=== PATIENT | female | born 1990 | race African-American/Black ===

== ENCOUNTER 2018-01-12 07:36 | Inpatient (IN) | payer SELFPAY ==
[~2018-01-12] VITALS: Ht 170.2 cm; Wt 108.9 kg
[2018-01-12] MEDS ORDERED: NALOXONE HCL 0.4 MG/ML 1ML VIAL IM PRN (08:30)
[2018-01-12] MEDS ORDERED: CARBOPROST TROMETHAMINE 250 MCG/ML AMPUL IM PRN (08:30)
[2018-01-12] MEDS ORDERED: BUTORPHANOL TARTRATE 2 MG/ML VIAL IV PRN (08:30)
[2018-01-12] MEDS ORDERED: LIDOCAINE HCL/PF 1% 10 MG/ML 5ML VIAL IJ SCH (08:30)
[2018-01-12] MEDS ORDERED: METHYLERGONOVINE MALEATE 0.2 MG/ML IM PRN (08:30)
[2018-01-12] MEDS: LACTATED RINGERS 1,000 ML IV SCH ×3 (09:33→23:41)
[2018-01-12 10:55] LABS: BASOPHILS % 0.2 % (0.0-2.0); EOSINOPHILS % 0.6 % (0.0-5.0); HEMATOCRIT. 37.7 % (36.0-48.0); LYMPHOCYTES % 21.3 % (20.0-50.0); MEAN CORPUSCULAR HEMOGLOBIN 31.4 pg (28.0-32.0); MEAN PLATELET VOLUME 9.8 fl (7.4-10.4); MONOCYTES % 5.3 % (2.0-8.0); NEUTROPHILS % 72.6 % (40.0-76.0); PLATELET 136 x1000/uL (130-400); RED BLOOD CELL COUNT 4.14 mill/uL (4.2-5.4); RED CELL DISTRIBUTION WIDTH 13.7 % (11.6-14.6)
[2018-01-12 11:00] LABS: PARTIAL THROMBOPLASTIN TIME 25.5 sec (23.4-31.0)
[2018-01-12 11:11] LABS: CLARITY URINE CLEAR (CLEAR); COLOR URINE YELLOW (YELLOW); KETONES URINE NEGATIVE (NEGATIVE); LEUKOCYTE ESTERASE URINE TRACE (NEGATIVE); NITRITE URINE NEGATIVE (NEGATIVE); OCCULT BLOOD URINE TRACE (NEGATIVE); PH URINE 6.5 (4.5-8.0); PROTEIN URINE NEGATIVE (NEGATIVE); SPECIFIC GRAVITY URINE 1.021 (1.005-1.030); UROBILINOGEN URINE 0.2 E.U./dL (0.2-1.0)
[2018-01-12 13:06] LABS: HEPATITIS B SURFACE ANTIGEN NEGATIVE; RUBELLA IGG 233.6 IU/mL (4.99-10)
[2018-01-12 14:29] LABS: *AMPHETAMINES SCREEN URINE NEGATIVE (NEGATIVE); *BARBITURATES SCREEN URINE NEGATIVE (NEGATIVE); *BENZODIAZEPINES SCREEN URINE NEGATIVE (NEGATIVE); *COCAINE SCREEN URINE NEGATIVE (NEGATIVE); METHADONE URINE SCREEN NEGATIVE (NEGATIVE); OPIATES URINE SCREEN NEGATIVE (NEGATIVE)
[2018-01-12 14:30] LABS: CANNABINOID URINE SCREEN NEGATIVE (NEGATIVE); PHENCYCLIDINE URINE SCREEN NEGATIVE (NEGATIVE)
[2018-01-12] MEDS ORDERED: EPHEDRINE SULFATE 50MG/ML VIAL ONE (20:50)
[2018-01-12] MEDS ORDERED: FENTANYL CITRATE/PF 50MCG/ML 2ML VIAL ONE (20:50)
[2018-01-12] MEDS ORDERED: STERILE WATER FOR INJECTION 10ML VIAL ONE (20:52)
[2018-01-12] MEDS ORDERED: CITRIC ACID/SODIUM CITRATE SOLN 30ML UDC PO NR (21:00)
[2018-01-12] MEDS: DEXT 5%/LR + PITOCIN 20UNITS/L 1,000 ML IV SCH (23:41)
[2018-01-13] MEDS ORDERED: FENTANYL CITRATE/PF 50MCG/ML 2ML VIAL ONE (03:50)
[2018-01-13] MEDS ORDERED: BUPIVACAINE HCL/PF 0.25% (2.5MG/ML) 10ML ONE (03:51)
[2018-01-13] MEDS ORDERED: EPHEDRINE SULFATE 50MG/ML VIAL ONE (03:51)
[2018-01-13] MEDS ORDERED: STERILE WATER FOR INJECTION 10ML VIAL ONE (03:51)
[2018-01-13] MEDS ORDERED: BUPIVACAINE HCL/NS/PF EPIDURAL 100 ML EP ONE (04:24)
[2018-01-13] MEDS ORDERED: BUPIVACAINE HCL/NS/PF EPIDURAL 100 ML EP SCH (06:45)
[2018-01-13] MEDS: LACTATED RINGERS 1,000 ML IV SCH (06:56)
[2018-01-13] MEDS: DEXT 5%/LR + PITOCIN 20UNITS/L 1,000 ML IV SCH (10:31)
[2018-01-13 12:00] VITALS: BP 112/68
[2018-01-13] MEDS ORDERED: IBUPROFEN 400MG TABLET PO PRN (12:15)
[2018-01-13] MEDS: IBUPROFEN 800MG TABLET PO PRN ×2 (12:26→18:11)
[2018-01-13] MEDS ORDERED: BENZOCAINE/LANOLIN/ALOE VERA SPRAY TOP PRN (12:45)
[2018-01-13] MEDS: ACETAMINOPHEN WITH CODEINE 300/30MG TABLET PO PRN ×2 (15:27→21:52)
[2018-01-13 16:00] VITALS: BP 110/53
[2018-01-13] MEDS: SIMETHICONE 80MG TABLET CHEW PO SCH ×2 (17:00→21:53)
[2018-01-13] MEDS: DOCUSATE SODIUM 100MG CAPSULE PO SCH (21:53)
[2018-01-14 00:13] VITALS: BP 92/49
[2018-01-14] MEDS: IBUPROFEN 800MG TABLET PO PRN ×5 (00:13→22:31)
[2018-01-14] MEDS: ACETAMINOPHEN WITH CODEINE 300/30MG TABLET PO PRN (05:02)
[2018-01-14 08:30] VITALS: BP 101/43
[2018-01-14] MEDS: SIMETHICONE 80MG TABLET CHEW PO SCH ×4 (09:26→21:30)
[2018-01-14 16:30] VITALS: BP 110/47
[2018-01-14] MEDS: DOCUSATE SODIUM 100MG CAPSULE PO SCH (21:29)
[2018-01-14 22:00] VITALS: BP 104/50
[2018-01-15] MEDS: IBUPROFEN 800MG TABLET PO PRN ×2 (05:09→13:33)
[2018-01-15 06:00] VITALS: BP 115/57
[2018-01-15 07:55] VITALS: BP 116/69
[2018-01-15] MEDS ORDERED: TETANUS, DIPHTHERIA, PERTUSSIS VAC/PF 0.5ML (>7YR OLD) IM ONE (08:00)
[2018-01-15] MEDS: SIMETHICONE 80MG TABLET CHEW PO SCH (08:45)
[2018-01-15] MEDS ORDERED: MAGNESIUM HYDROXIDE 400MG/5ML 30ML UDC PO SCH (11:15)
[2018-01-15 13:33] VITALS: BP 116/69
== END 2018-01-15 11:00 | disposition home or self-care (01) | DRG 560 ==
LOC: L&D 07:36 → OBSVTOIN 07:36 → L&D 09:36 → 7EST PP/OB 01-13 12:18
PROVIDERS: ADMIT Obstetrics & Gynecology Obstetrics; ATTEND Obstetrics & Gynecology Obstetrics
PROC: 0KQM0ZZ Repair Perineum Muscle, Open Approach (ICD-10-PCS; 2018-01-13)
PROC: 3E0R3BZ Introduction of Anesthetic Agent into Spinal Canal, Percutaneous Approach (ICD-10-PCS; 2018-01-13)
PROC: 00HU33Z Insertion of Infusion Device into Spinal Canal, Percutaneous Approach (ICD-10-PCS; 2018-01-13)
PROC: 10E0XZZ Delivery of Products of Conception, External Approach (ICD-10-PCS; principal; 2018-01-13 09:26)
DX: O48.0 Post-term pregnancy (principal); O70.1 Second degree perineal laceration during delivery; Z37.0 Single live birth; Z3A.41 41 weeks gestation of pregnancy; Z88.8 Allergy status to other drugs, medicaments and biological substances
CPT/HCPCS: 36415; 80305; 81003; 85025; 85610; 85730; 86592; 86703; 86762; 86850; 86900; 87340; 90715; A4216; G0378; J2590; J3010; J3490; J7120